=== PATIENT | female | born 1965 | race Caucasian/White ===

== ENCOUNTER 2019-11-19 10:27 | Emergency (ER) | payer MEDICAID ==
[~2019-11-19] VITALS: Ht 161.3 cm; Wt 72.7 kg
[2019-11-19] MEDS ORDERED: nitroGLYCERIN 0.4mg SUBLingual tab SL PRN (10:30)
[2019-11-19] MEDS ORDERED: aspirin 81mg tab.chew PO ONE (10:30)
[2019-11-19] MEDS ORDERED: GABA600T13 PO (10:49)
[2019-11-19] MEDS ORDERED: GABA-532 PO (10:49)
[2019-11-19] MEDS ORDERED: IBUP-1986 PO (10:49)
[2019-11-19 10:50] LABS: BASOPHILS % (AUTO) 0.4 % (0-1); EOSINOPHILS # (AUTO) 0.1 X10'3 (0-0.9); EOSINOPHILS % (AUTO) 0.7 % (0-6); HEMATOCRIT 48.1 % (35.0-45.0); HEMOGLOBIN 16.2 g/dl (12.0-16.0); LYMPHOCYTES # (AUTO) 1.8 X10'3 (1.1-4.8); LYMPHOCYTES % (AUTO) 16.3 % (21-51); MEAN CORPUSCULAR HEMOGLOBIN 32.1 PG (27.0-31.0); MEAN CORPUSCULAR HGB CONC 33.7 g/dL (33.0-36.5); MEAN CORPUSCULAR VOLUME 95.2 FL (78-98); MEAN PLATELET VOLUME 10.7 FL (7.4-10.4); MONOCYTES # (AUTO) 1.1 X10'3 (0-0.9); MONOCYTES % (AUTO) 9.9 % (2-12); NEUTROPHILS # (AUTO) 8.1 X10'3 (1.8-7.7); NEUTROPHILS % (AUTO) 72.7 % (42-75); PLATELET COUNT 217 X10'3 (140-440); RED BLOOD COUNT 5.06 X10'6 (4.20-5.60); RED CELL DISTRIBUTION WIDTH 13.9 % (11.5-14.5); WHITE BLOOD COUNT 11.1 X10'3 (4.5-11.0)
[2019-11-19 11:07] LABS: ALANINE AMINOTRANSFERASE 30 U/L (12-78); ALBUMIN/GLOBULIN RATIO 1.1 (1.1-1.5); ALKALINE PHOSPHATASE 102 IU/L (46-116); ANION GAP 11 (8-16); ASPARTATE AMINO TRANSFERASE 26 U/L (10-37); BILIRUBIN,TOTAL 0.3 MG/DL (0.1-1.0); BLOOD UREA NITROGEN 9 MG/DL (7-18); BUN/CREATININE RATIO 11.8 (6.6-38.0); CALCIUM 9.2 MG/DL (8.5-10.1); CHLORIDE 104 MMOL/L (99-107); CREATININE 0.76 MG/DL (0.40-0.90); GLUCOSE 76 MG/DL (70-104); POTASSIUM 3.8 MMOL/L (3.5-5.1); SODIUM 139 MMOL/L (135-145); TOTAL CARBON DIOXIDE 24.3 MMOL/L (24-32); TOTAL PROTEIN 7.8 G/DL (6.4-8.2); eGFR 79 ML/MIN
[2019-11-19 11:12] LABS: MAGNESIUM 2.1 MG/DL (1.5-2.4)
[2019-11-19] MEDS ORDERED: ondansetron/PF 4mg/2ml inj IV PRN (11:25)
[2019-11-19] MEDS ORDERED: morphine 4 MG/ML inj SYRINge IV PRN (11:25)
[2019-11-19 11:45] LABS: D-DIMER 0.38 MG/L FEU (0-0.50)
[2019-11-19 12:17] VITALS: BP 149/55
== END 2019-11-19 12:25 | disposition home or self-care (01) ==
LOC: ER 10:28
DX: J20.9 Acute bronchitis, unspecified (principal); R07.89 Other chest pain; F17.218 Nicotine dependence, cigarettes, with other nicotine-induced disorders; Z98.890 Other specified postprocedural states; Z79.899 Other long term (current) drug therapy
CPT/HCPCS: 36415; 71045; 80053; 83735; 83880; 84484; 85025; 85379; 93005; 96374; 96375; 99285; 99406; J2270; J2405

== ENCOUNTER 2024-01-31 11:32 | Outpatient (CLI) | payer MEDICAID ==
[~2024-01-31 11:32] MED LIST: GABA-532 PO; GABA600T13 PO; IBUP-1986 PO
== END 2024-01-31 23:59 | disposition home or self-care (01) ==
LOC: RAD 11:32
PROVIDERS: ATTEND Nurse Practitioner Family
DX: K80.20 Calculus of gallbladder without cholecystitis without obstruction (principal); M79.672 Pain in left foot; M79.605 Pain in left leg; R10.10 Upper abdominal pain, unspecified
CPT/HCPCS: 76700

== ENCOUNTER 2024-08-04 14:50 | Outpatient (CLI) | payer MEDICAID ==
[~2024-08-04 14:50] MED LIST changes: +GABA-1405 PO; -GABA600T13 PO
== END 2024-08-04 23:59 | disposition home or self-care (01) ==
LOC: RAD 14:50
PROVIDERS: ATTEND Podiatrist Foot & Ankle Surgery
DX: M19.072 Primary osteoarthritis, left ankle and foot (principal); M25.472 Effusion, left ankle; M21.40 Flat foot [pes planus] (acquired), unspecified foot
CPT/HCPCS: 73700

== ENCOUNTER 2025-03-03 16:03 | Outpatient (CLI) | payer MEDICAID ==
--- NOTE | 2025-03-03 21:10 | RADIOLOGY REPORT ---
EXAM: CT CT LOWER EXTREMITY INDICATION: EFFUSION, LEFT ANKLE, PRIMARY OSTEOARTHRITIS, LEFT ANKLE AND FOOT TECHNIQUE: Axial images of left foot and ankle have been obtained along with coronal and sagittal ref ormatted images. All CT scans at this facility use dose modulation, iterative reconstruction, and/or weight based dosing when appropriate to reduce radiation dose to as low as reasonably achievable. COMPARISON: CT CT LOWER EXTREMITY on DOS: 08/04/24 FINDINGS: BONES: Long cannulated screw through the posterior subtalar joint and dorsally applied plate and scre w construct of the midfoot and lateral calcaneus across the calcaneocuboid articulation. No hardware osseous bone interface definitive lucency. Additional hardware across the great toe no CT evidence of loosening. Partial fusion across the talonavicular articulation. Centrally complete fusion of the po sterior subtalar joint. Complete fusion across the 1st metatarsophalangeal joint. Small plantar calca lino spur. MUSCLES: No abnormal attenuation. JOINT SPACES: Accelerated degenerative change of the tibiotalar articulation with asymmetric areas of joint space loss. Disuse Diffusely decreased bone mineral density. OTHER: None. IMPRESSION: 1. No CT evidence of an acute fracture. Accelerated degenerative change of the tibiotalar articulatio n as detailed above. No drainable fluid collection. Midfoot degenerative change.
== END 2025-03-03 23:59 | disposition home or self-care (01) ==
LOC: 64 CT 16:03
PROVIDERS: ATTEND Podiatrist Foot & Ankle Surgery
DX: M19.072 Primary osteoarthritis, left ankle and foot (principal); M79.672 Pain in left foot; M25.472 Effusion, left ankle; M21.40 Flat foot [pes planus] (acquired), unspecified foot; M96.0 Pseudarthrosis after fusion or arthrodesis
CPT/HCPCS: 73700

== ENCOUNTER 2025-06-28 21:26 | Emergency (ER) | payer MEDICAID ==
[~2025-06-28] VITALS: Ht 161.3 cm; Wt 85.0 kg
[2025-06-28 22:23] VITALS: BP 126/87; PULSE 120; RESP 18; TEMP 97.6; O2SAT 96
--- NOTE | 2025-06-28 23:08 | RADIOLOGY REPORT ---
CLINICAL INDICATION: PAIN S/P FALL RIGHT TECHNIQUE: DI HAND, COMPLETE (3VW MIN) Comparison: None FINDINGS/IMPRESSION: : Moderate cortical discontinuity of the distal scaphoid pole suggests possible nondisplaced fracture of uncertain chronicity. Moderate degenerative change of the trapezial metacarpal, triscaphe and interphalangeal joints includes joint space narrowing, marginal osteophytosis and subchondral sclerosis. Soft tissues are unremarkable.
== END 2025-06-29 02:05 | disposition left against medical advice (07) ==
LOC: ER 21:27
DX: R51.9 Headache, unspecified (principal); M79.641 Pain in right hand
CPT/HCPCS: 73130; 99281